=== PATIENT | male | born 1980 | race Two or more races ===

== ENCOUNTER 2020-11-09 19:07 | Emergency (ER) | payer OTHER | END 2020-11-09 20:46 | disposition left against medical advice (07) | LOC: EMS 19:13 | DX: Z03.89 Encounter for observation for other suspected diseases and conditions ruled out (principal); Z53.21 Procedure and treatment not carried out due to patient leaving prior to being seen by health care provider ==

== ENCOUNTER 2024-04-06 02:41 | Emergency (ER) | payer OTHER | END 2024-04-06 03:15 | disposition left against medical advice (07) | LOC: EMS 02:41 | DX: Z00.8 Encounter for other general examination (principal); Z53.21 Procedure and treatment not carried out due to patient leaving prior to being seen by health care provider ==